=== PATIENT | female | born 1955 | race Caucasian/White ===

== ENCOUNTER 2024-06-05 13:21 | Inpatient (IN) | payer OTHER, MEDICARE ==
[2024-06-05 14:21] LABS: Absolute Basophils 0.1 K/uL (0-0.5); Absolute Eosinophils 0.2 K/uL (0-0.5); Absolute Lymphocytes (CBC) 2.2 K/uL (0.7-4.9); Absolute Monocytes 0.7 K/uL (0.1-1.3); Absolute Neutrophil 3.2 K/uL (1.8-8.0); Basophils % 0.8 % (0-1.3); Eosinophils % 2.9 % (0-4.4); Hematocrit 38.8 % (36.0-45.0); Hemoglobin 13.9 g/dL (12.0-15.0); Lymphocytes % 34.7 % (15.3-44.8); MCH 35.4 pg (27.0-35.0); MCHC 35.9 g/dL (32.0-36.0); MCV 98.8 fL (80-100); MPV 7.2 fL (7.6-11.3); Monocytes % 11.7 % (3.3-12.3); Neutrophils % 49.9 % (41.7-73.7); Nucleated Red Blood Cells % 0.1 % (0-0); Platelets 209 thou/uL (152-406); RBC Red Blood Cell Count 3.92 M/uL (3.86-4.86); Red Cell Distribution Width 13.7 % (12.1-15.2)
[2024-06-05] MEDS ORDERED: ASPIRIN 81 MG CHEWABLE TABLET ONE (14:29)
[2024-06-05 14:39] LABS: Anion Gap 8.6 mEq/L (5.0-15.0); Potassium 3.6 mEq/L (3.5-5.1); Troponin High Sensitivity 6.1 pg/mL (<58.9)
--- NOTE | 2024-06-05 14:49 | ER ---
Nurse's Notes [facility] Name: Loree Interiano Age: 68 yrs Sex: Female : 1955 Arrival Date: 06/05/2024 Time: 13:21 Bed 6 Private MD: Diagnosis: Chest pain, unspecified;Unstable angina Presentation: 06/05 13:42 Chief complaint: Patient states: Pt c/o sudden onset of non-reproducible, non-radiating tl4 right side chest pressure, SOB, diaphoresis, and dizziness while walking around a store at approx 1245 today. Pt states sxs started after eating. Pt is scheduled for an angiogram on Saturday to r/o cardiac blockages. Pt states this pain is similar to previous cardiac pain. Coronavirus screen: At this time, the client does not indicate any symptoms associated with coronavirus-19. Ebola Screen: No symptoms or risks identified at this time. Initial Sepsis Screen: Does the patient meet any 2 criteria? No. Patient's initial sepsis screen is negative. Does the patient have a suspected source of infection? No. Patient's initial sepsis screen is negative. Risk Assessment: Do you want to hurt yourself or someone else? Patient reports no desire to harm self or others. Onset of symptoms was June 05, 2024 at 12:45. 13:42 Method Of Arrival: Wheelchair tl4 13:42 Acuity: MARSHA 2 tl4 Triage Assessment: 13:45 General: Appears in no apparent distress. Behavior is calm, cooperative. Pain: tl4 Complains of pain in chest. EENT: No signs and/or symptoms were reported regarding the EENT system. Neuro: Level of Consciousness is awake, alert, obeys commands, Oriented to person, place, time, situation, Moves all extremities. Full function Gait is steady, Speech is normal, Facial symmetry appears normal. Neuro: Reports dizziness. Cardiovascular: Reports chest pain, diaphoresis, shortness of breath, Capillary refill < 3 seconds Patient's skin is warm and dry. Respiratory: Reports shortness of breath Airway is patent Respiratory effort is even, unlabored, Respiratory pattern is regular, symmetrical. GI: No signs and/or symptoms were reported involving the gastrointestinal system. : No signs and/or symptoms were reported regarding the genitourinary system. Derm: No signs and/or symptoms reported regarding the dermatologic system. Musculoskeletal: No signs and/or symptoms reported regarding the musculoskeletal system. Historical: - Allergies: 13:45 No Known Allergies; tl4 - Immunization history:: Adult Immunizations unknown. - Infectious Disease History:: Denies. - Social history:: Smoking status: Patient reports the use of cigarette tobacco products, 4 cigarettes/day. Screenin:46 [facility] ED Fall Risk Assessment (Adult) History of falling in the last 3 months, iw including since admission No falls in past 3 months (0 pts) Confusion or Disorientation No (0 pts) Intoxicated or Sedated No (0 pts) Impaired Gait No (0 pts) Mobility Assist Device Used No (0 pt) Altered Elimination No (0 pt) Score/Fall Risk Level 0 - 2 = Low Risk Oriented to surroundings, Maintained a safe environment. Abuse screen: Denies threats or abuse. Denies injuries from another. Nutritional screening: No deficits noted. Nutritional screening: No deficits noted. Tuberculosis screening: No symptoms or risk factors identified. Assessment: 14:46 General: Appears in no apparent distress. Behavior is calm, cooperative. Pain: iw Complains of pain in chest Pain does not radiate. Pain currently is 0 out of 10 on a pain scale. at worst was 10 out of 10 on a pain scale. Pain began 4 hours ago. Is continuous. Neuro: Level of Consciousness is awake, alert, obeys commands, Oriented to person, place, time, situation, Moves all extremities. Full function. Cardiovascular: Reports chest pain, Patient's skin is warm and dry. Respiratory: Respiratory effort is even, unlabored, Respiratory pattern is regular, symmetrical. GI: Abdomen is non-distended. Derm: Skin is intact, is healthy with good turgor. Musculoskeletal: Range of motion: intact in all extremities. Vital Signs: 13:42 BP 163 / 90; Pulse 77; Resp 15; Temp 98.2(O); Pulse Ox 96% on R/A; Weight 85.28 kg; tl4 Height 5 ft. 3 in. ; Pain 8/10; 13:42 Body Mass Index 33.30 (85.28 kg, 160.02 cm) tl4 13:42 Pain Scale: Adult tl4 ED Course: 13:24 Patient arrived in ED. mr 13:31 Rogelio Babcock, RADHA is Primary Nurse. bp 13:38 Margarette Rosario PA-C is PHCP. sb4 13:38 Shin Multani MD is Attending Physician. sb4 13:41 EKG done, by ED staff, reviewed by Shin Multani MD. Patient maintains SpO2 saturation tl4 greater than 95% on room air. 13:42 Patient has correct armband on for positive identification. Placed in gown. Bed in low tl4 position. Call light in reach. Side rails up X 1. Adult w/ patient. Provided Education on: ed process, call llanes. Client placed on continuous cardiac and pulse oximetry monitoring. NIBP monitoring applied. center human resources manager on. Door closed. Noise minimized. Moved to private room. 13:45 Triage completed. tl4 13:47 Arm band placed on right wrist. tl4 14:11 XRAY Chest (1 view) In Process Unspecified. EDMS 14:16 Initial lab(s) drawn, by me, sent to lab. Inserted saline lock: 22 gauge in right em1 forearm, using aseptic technique. Blood collected. Flushed with 10 mL NS Missed attempt(s): 20 gauge in right forearm. Bleeding controlled, band aid applied, catheter tip intact. 14:45 Ptt, Activated Sent. iw 14:45 BNP Sent. iw 14:45 PT-INR Sent. iw 14:47 Primary Nurse role handed off by Rogelio Babcock, RADHA iw 14:47 Helen Villalobos, RN is Primary Nurse. iw 14:48 Pj Ocaiso MD is Hospitalizing Provider. sb4 Administered Medications: 14:45 Drug: Aspirin PO Chewable Tablet 324 mg PO once; 81 mg tablets x 4 Route: PO; iw Medication: 14:47 VIS not applicable for this client. iw Outcome: 14:48 Decision to Hospitalize by Provider. sb4 17:27 Patient left the ED. oh1 Signatures: Dispatcher [employer] EDMT Shabana Segura, Reg Reg mr Helen Villalobos, RN RN iw Ayan Manzano em1 Rogelio Babcock, Margarette Meza RN, PA-C PA-C sb4 LogNorbert beckwith RN RN tl4 Mariaa Holloway oh1
--- NOTE | 2024-06-05 14:49 | EDPHYS ---
Physician Documentation [facility] Name: Loree Interiano Age: 68 yrs Sex: Female : 1955 Arrival Date: 06/05/2024 Time: : Bed 6 Private MD: ED Physician Shin Multani HPI: 06/05 13:44 This 68 yrs old Female presents to ER via Unassigned with complaints of Chest Pain. sb4 13:44 The patient or guardian reports chest pain that is located primarily in the substernal sb4 area. Onset: just prior to arrival. The pain does not radiate. Associated signs and symptoms: Pertinent positives: diaphoresis, dizziness, nausea. Duration: The patient or guardian reports multiple episodes. The patient has experienced similar episodes in the past, a few times. chest pain on and off for a few weeks now, had abnormal stress test last week, scheduled for cath on Saturday, started experiencing chest pain today and came into ED. Historical: - Allergies: 13:45 No Known Allergies; tl4 - Immunization history:: Adult Immunizations unknown. - Infectious Disease History:: Denies. - Social history:: Smoking status: Patient reports the use of cigarette tobacco products, 4 cigarettes/day. ROS: 13:44 Constitutional: Negative for fever, chills, and weight loss, sb4 13:44 Cardiovascular: Positive for chest pain, 13:44 All other systems are negative, Exam: 13:44 Constitutional: This is a well developed, well nourished patient who is awake, alert, sb4 and in no acute distress. Head/Face: Normocephalic, atraumatic. Eyes: Extra-ocular motions intact. Periorbital areas with no swelling, redness, or edema. ENT: Mucous membranes moist. Cardiovascular: Regular rate and rhythm with a normal S1 and S2. Respiratory: Lungs have equal breath sounds bilaterally, clear to auscultation and percussion. No rales, rhonchi or wheezes noted. No increased work of breathing, no retractions or nasal flaring. Abdomen/GI: Soft, non-tender, no distension. Skin: Warm, dry with normal turgor. Normal color with no rashes, no lesions, and no evidence of cellulitis. MS/ Extremity: Pulses equal, no cyanosis. Neurovascular intact. Full, normal range of motion. Vital Signs: 13:42 BP 163 / 90; Pulse 77; Resp 15; Temp 98.2(O); Pulse Ox 96% on R/A; Weight 85.28 kg; tl4 Height 5 ft. 3 in. ; Pain 8/10; 13:42 Body Mass Index 33.30 (85.28 kg, 160.02 cm) tl4 13:42 Pain Scale: Adult tl4 MDM: 13:39 Patient medically screened. sb4 13:57 Data reviewed: vital signs, nurses notes, lab test result(s), EKG, radiologic studies, sb4 and as a result, I will admit patient. Consideration of Admission/Observation Patient was admitted/placed on observation. 14:44 The patient was given aspirin in the Emergency Department. sb4 14:48 Counseling: I had a detailed discussion with the patient and/or guardian regarding the sb4 historical points, exam findings, and any diagnostic results supporting the discharge/admit diagnosis, the presence of at least one elevated blood pressure reading (>120/80) during this emergency department visit, lab results, radiology results, the need for further work-up and treatment in the hospital. 14:51 Scoring Tools HEART Score: History: ECG: Age: Risk Factors: > or = 3 Risk factors for sb4 atherosclerotic disease (2), Troponin: Total Score = 4. 06/05 13:33 Order name: Basic Metabolic Panel; Complete Time: 14:39 ec2 06/05 13:33 Order name: CBC with Diff; Complete Time: 14:29 ec2 06/05 13:33 Order name: Troponin HS; Complete Time: 14:39 ec2 06/05 13:44 Order name: PT-INR; Complete Time: 15:28 sb4 06/05 13:44 Order name: Ptt, Activated; Complete Time: 15:28 sb4 06/05 13:44 Order name: BNP; Complete Time: 15:15 sb4 06/05 13:33 Order name: XRAY Chest (1 view); Complete Time: 15:34 ec2 06/05 13:33 Order name: Cardiac monitoring; Complete Time: 14:33 ec2 06/05 13:33 Order name: EKG - Nurse/Tech; Complete Time: 13:35 ec2 06/05 13:33 Order name: IV Saline Lock; Complete Time: 14:16 ec2 06/05 13:33 Order name: Labs collected and sent; Complete Time: 14:16 ec2 06/05 13:33 Order name: O2 Per Protocol; Complete Time: 13:36 ec2 06/05 13:33 Order name: O2 Sat Monitoring; Complete Time: 13:36 ec2 EC:51 Rate is 78 beats/min. Rhythm is regular, Normal Sinus Rhythm. CT interval is normal at sb4 178 msec. QRS interval is normal at 86 msec. QT interval is normal at 412 msec. No Q waves. T waves are Normal. No ST changes noted. Clinical impression: No evidence of ischemia. Interpreted by me. Reviewed by me. Administered Medications: 14:45 Drug: Aspirin PO Chewable Tablet 324 mg PO once; 81 mg tablets x 4 Route: PO; iw Disposition Summary: 06/05/24 14:48 Hospitalization Ordered Notes: Hospitalization Status: Inpatient Admission sb4 Provider: Pj Ocasio sb4 Location: Telemetry/[facility] (Inpatient) sb4 Condition: Fair sb4 Problem: new sb4 Symptoms: are unchanged sb4 Bed/Room Type: Standard sb4 Room Assignment: 211(06/05/24 16:12) ja1 Diagnosis - Chest pain, unspecified sb4 - Unstable angina sb4 Forms: - Medication Reconciliation Form sb4 - SBAR form sb4 - Leadership Thank You Letter sb4 Addendum: 06/07/2024 10:30 I was immediately available for consultation during this patient's visit. I did not e c2 personally see the patient or discuss the patient with the STEPHON. . Signatures: Dispatcher [employer] Helen Bradford RN RN Sohail Luevano RN RN ja1 Margarette Rosario PA-C PA-C sb4 Shin Multani MD MD ec2 Norbert Roman RN RN tl4 Corrections: (The following items were deleted from the chart) 06/05 13:34 13:34 Chest Single View+RAD.RAD.BRZ ordered. ANDIPR ANDIPR 16:12 14:48 sb4 ja1
[2024-06-05 15:26] LABS: PT Prothrombin Time 10.9 SECONDS (9.4-12.5); PTT, Activated Partial Thromb 30.9 SECONDS (24.3-36.9); Protime INR 0.97
--- NOTE | 2024-06-05 15:32 | RAD REPORT ---
EXAM DESCRIPTION: Jennifer Single View06/05/2024 2:10 pm CLINICAL HISTORY: CHEST PAIN COMPARISON: No comparisons TECHNIQUE: Portable AP view of the chest. FINDINGS: The lungs are clear. No pneumothorax or effusion. The cardiomediastinal contours are unre markable. IMPRESSION: No acute cardiopulmonary process.
--- NOTE | 2024-06-05 16:19 | P.HP ---
Certification for Inpatient Patient admitted to: Inpatient With expected LOS: >2 Midnights Patient will require the following post-hospital care: None Practitioner: I am a practitioner with admitting privileges, knowledge of patient current condition, hospital course, and medical plan of care. Services: Services provided to patient in accordance with Admission requirements found in Title 42 Section 412.3 of the Code of Federal Regulations Patient History Date of Service: 06/05/24 Reason for admission: Unstable angina History of Present Illness: 68-year-old female with history of GERD, hypertension, hyperlipidemia presents emergency department chief complaint of chest pain. She reports that she had an abnormal stress test on 05/27 and was pending outpatient catheterization when she developed severe chest pain while at [employer]. She was evaluated here in the emergency department initial high-sensitivity, within normal limits, EKG without STEMI criteria. Given abnormal stress test and ongoing chest pain we will plan to admit patient to the hospital for further management. - Past Medical/Surgical History -: hypertension -: Hyperlipidemia -: GERD -: Cholecystectomy -: Oophorectomy -: Cosmetic surgeries Psychosocial/ Personal History: Retired, lives at home with her - Family History Father -: Heart disease - Social History Smoking Status: Current every day smoker Alcohol use: Yes CD- Drugs: No Caffeine use: Yes Place of Residence: Home Review of Systems 10-point ROS is otherwise unremarkable Cardiovascular: Chest Pain Physical Examination - Physical Exam General: Alert, In no apparent distress, Oriented x3 HEENT: Atraumatic, PERRLA, Mucous membr. moist/pink, EOMI Neck: Supple, 2+ carotid pulse no bruit, No LAD Respiratory: Clear to auscultation bilaterally, Normal air movement Cardiovascular: Regular rate/rhythm, Normal S1 S2 Gastrointestinal: Normal bowel sounds Musculoskeletal: No tenderness Integumentary: No rashes Neurological: Normal gait, Normal speech, Normal strength at 5/5 x4 extr, Normal tone, Normal affect Lymphatics: No axilla or inguinal lymphadenopathy - Studies Laboratory Data (last 24 hrs) 06/05/24 06/05/24 06/05/24 14:40 14:10 14:10 WBC 6.40 Hgb 13.9 Hct 38.8 Plt Count 209 PT 10.9 INR 0.97 APTT 30.9 Sodium 140 Potassium 3.6 BUN 17 Creatinine 0.77 Glucose 119 H Assessment and Plan - Plan Assessment: Unstable angina Hypertension hyperlipidemia GERD Plan: Unstable angina abnormal stress test 05/27 Began having severe chest pain today-improved Trend troponins and monitor on telemetry As needed morphine/nitroglycerin Cardiology consultation in place Likely will need inpatient cath Hypertension hyperlipidemia GERD Continue home medications DVT PPX: Therapeutic Lovenox Code status:full Discharge Plan: Home Plan to discharge in: 72 Hours - Advance Directives Does patient have a Living Will: No Does patient have a Durable POA for Healthcare: No - Code Status/Comfort Care Code Status Assessed: Yes (Full code) Critical Care: No Time Spent Managing Pts Care (In Minutes): 70
[2024-06-05 17:25] VITALS: BMI 33.2
[2024-06-05] MEDS ORDERED: ONDANSETRON 4 MG/2 ML VIAL IV PRN (17:53)
[2024-06-05] MEDS ORDERED: NITROGLYCERIN 0.4 MG/TAB SL PRN (17:53)
[2024-06-05] MEDS: METOPROLOL TAR 25 MG TAB PO SCH (19:12)
[2024-06-05] MEDS: ATORVASTATIN 40 MG TAB PO SCH (20:03)
[2024-06-05] MEDS: ENOXAPARIN 100 MG/ML SYR SQ SCH (20:04)
[2024-06-06 04:39] LABS: Absolute Eosinophils 0.2 K/uL (0-0.5); Absolute Lymphocytes (CBC) 2.1 K/uL (0.7-4.9); Absolute Monocytes 0.7 K/uL (0.1-1.3); Absolute Neutrophil 2.3 K/uL (1.8-8.0); Basophils % 0.7 % (0-1.3); Hematocrit 38.4 % (36.0-45.0); Hemoglobin 13.1 g/dL (12.0-15.0); Lymphocytes % 39.5 % (15.3-44.8); MCH 33.4 pg (27.0-35.0); MCV 98.2 fL (80-100); MPV 7.3 fL (7.6-11.3); Neutrophils % 42.8 % (41.7-73.7); Nucleated Red Blood Cells % 0.2 % (0-0); Platelets 192 thou/uL (152-406); RBC Red Blood Cell Count 3.91 M/uL (3.86-4.86); Red Cell Distribution Width 13.3 % (12.1-15.2)
[2024-06-06 04:57] LABS: Anion Gap 6.5 mEq/L (5.0-15.0); Potassium 3.5 mEq/L (3.5-5.1)
[2024-06-06] MEDS: PANTOPRAZOLE 40MG TABLET PO SCH (05:54)
[2024-06-06 11:02] LABS: Sqamous Epithelial None Seen /HPF (None Seen); Urine Bacteria None Seen /HPF (<20); Urine Bilirubin NEGATIVE (Negative); Urine Blood Negative (Negative); Urine Clarity Clear (Clear); Urine Color Colorless (Yellow); Urine Culture Reflex Order NOT NEEDED; Urine Glucose NEGATIVE (Negative); Urine Ketones NEGATIVE (Negative); Urine Microscopic Reflex YN ORDER UMIC; Urine Nitrite NEGATIVE (Negative); Urine Protein NEGATIVE (Negative); Urine RBC <5 /HPF (None Seen); Urine Urobilinogen Normal (Normal); Urine WBC <5 /HPF (<5); Urine pH 6.5 (5.0-7.0)
--- NOTE | 2024-06-06 11:19 | P.PN ---
Date of Service: 06/06/24 Subjective: Had another episode of chest discomfort this morning No other acute events overnight ROS: 10 point ROS as noted above, otherwise negative Physical exam GEN: Alert, oriented, NAD HEENT: Normal conjunctiva, sclera anicteric CV: Regular rate and rhythm, no edema Pulm: Nonlabored respirations on room air ABD: Soft, nontender, nondistended MSK: No joint tenderness Integumentary: No rashes Neuro: Normal speech, normal affect Vitals reviewed Assessment: Unstable angina Hypertension hyperlipidemia GERD Plan: Unstable angina abnormal stress test 05/27 Began having severe chest pain 06/05-improved Still with ongoing intermittent pain Trops negative x 3, continue to monitor on telemetry As needed morphine/nitroglycerin Cardiology consultation in place Likely will need inpatient cath on Saturday Hypertension hyperlipidemia GERD Continue home medications DVT PPX: Therapeutic Lovenox Code status:full Discharge Plan: Home Plan to discharge in: 72 Hours Time Spent Managing Pts Care (In Minutes): 35
[2024-06-06] MEDS: LIDOCAINE 4% PATCH TOP SCH (12:24)
[2024-06-06] MEDS: SUCRALFATE 1GM/10ML UCUP FT PRN (12:24)
[2024-06-06] MEDS: ACETAMINOPHEN 325 MG TABLET PO PRN (12:24)
[2024-06-06] MEDS: AMLODIPINE 5 MG TAB PO SCH (16:48)
[2024-06-07] MEDS: MORPHINE 2 MG/ML SYR IV PRN (00:19)
[2024-06-07 05:48] LABS: Absolute Eosinophils 0.2 K/uL (0-0.5); Absolute Monocytes 0.6 K/uL (0.1-1.3); Absolute Neutrophil 2.3 K/uL (1.8-8.0); Basophils % 0.7 % (0-1.3); Eosinophils % 3.7 % (0-4.4); Hematocrit 39.4 % (36.0-45.0); Hemoglobin 13.2 g/dL (12.0-15.0); Lymphocytes % 39.2 % (15.3-44.8); MCH 33.5 pg (27.0-35.0); MCHC 33.6 g/dL (32.0-36.0); MCV 99.8 fL (80-100); MPV 7.8 fL (7.6-11.3); Monocytes % 11.8 % (3.3-12.3); Neutrophils % 44.6 % (41.7-73.7); Platelets 170 thou/uL (152-406); RBC Red Blood Cell Count 3.94 M/uL (3.86-4.86); Red Cell Distribution Width 13.6 % (12.1-15.2)
[2024-06-07 05:58] LABS: Anion Gap 6.3 mEq/L (5.0-15.0); Potassium 3.3 mEq/L (3.5-5.1)
[2024-06-07] MEDS ORDERED: LIDOCAINE 4% PATCH TOP SCH (09:00)
--- NOTE | 2024-06-07 10:15 | P.PN ---
Date of Service: 06/07/24 Subjective: Still having intermittent chest pressure No acute events overnight ROS: 10 point ROS as noted above, otherwise negative Physical exam GEN: Alert, oriented, NAD HEENT: Normal conjunctiva, sclera anicteric CV: Regular rate and rhythm, no edema Pulm: Nonlabored respirations on room air ABD: Soft, nontender, nondistended MSK: No joint tenderness Integumentary: No rashes Neuro: Normal speech, normal affect Vitals reviewed Assessment: Unstable angina Hypertension hyperlipidemia GERD Plan: Unstable angina abnormal stress test 05/27 Began having severe chest pain 06/05-improved Still with ongoing intermittent pain Trops negative x 3, continue to monitor on telemetry As needed morphine/nitroglycerin Cardiology consultation in place Likely will need inpatient cath on Saturday NPO after midnight Hypertension hyperlipidemia GERD Continue home medications DVT PPX: Therapeutic Lovenox Code status:full Discharge Plan: Home Plan to discharge in: 72 Hours Time Spent Managing Pts Care (In Minutes): 35
[2024-06-07] MEDS: ASPIRIN 81 MG CHEWABLE TABLET PO ONE (17:11)
--- NOTE | 2024-06-07 17:41 | CON ---
Date of Consultation: 06/07/2024 Reason For Consultation: Chest pain. History Of Present Illness: 68-year-old female, history of hypertension, dyslipidemia, acid reflux. She has been having chest pain on and off, left and right side, radiates to the shoulder, and increa ses with activity. She had a stress test in the office and it was positive and she was planned to shah ve coronary angiogram and scheduled for it for tomorrow morning. At the present time, she has no devika st pain, but with activities, she gets chest pain plus dizzy spells and lasts for about 15-20 minutes , and resolves. Past Medical History: Hypertension, dyslipidemia, acid reflux. Past Surgical History: Cholecystectomy, oophorectomy. Medications: Refer to reconciliation sheet for detailed list. Allergies: NO KNOWN DRUG ALLERGIES. Family History: No premature coronary artery disease or cancer. Social History: She is an ex-smoker. Does not drink or use any drugs. Review of Systems: All systems were reviewed and they were negative except as mentioned in the HPI. Physical Examination: Vital Signs: Reviewed. Head and Neck: Pupils are equal, reactive to light. Intact eye movements. No JVD. No cervical lym phadenopathy. Neck is supple. Thyroid is not enlarged. Lungs: Clear to auscultation bilaterally. No rhonchi, wheezing, or crackles. No accessory muscle u se. Heart: Regular rate and rhythm. No extra sounds. Abdomen: Soft, nontender. Bowel sounds positive. No organomegaly. No masses or hernia. No rigidi ty or rebound. Extremities: No edema, clubbing, or cyanosis. Intact pulses. Skin: No rash. No nodule. Neurologic: Alert, awake, oriented x3. No acute focal deficits appreciated. Investigations: BUN is 10, creatinine 0.66, potassium is 3.3. Troponins are negative and hemoglobin is 15.2. Assessment And Recommendations: 1.Unstable angina with abnormal stress test. Keep her NPO past midnight. Plan for a coronary angio gram early in the morning. Continue baby aspirin and to hold the Lovenox after tonight's dose and pr eparation for coronary angiogram tomorrow. 2.Dyslipidemia. Continue Lipitor 40 mg q.h.s. 3.Hypertension. Blood pressure is acceptable. Continue current therapy. SR/MODL Voice ID: [id number] Report ID: [id number]
[2024-06-08] MEDS: ASPIRIN 81 MG CHEWABLE TABLET ONE (05:36)
[2024-06-08] MEDS: ASPIRIN 81 MG CHEWABLE TABLET PO SCH (05:43)
[2024-06-08 06:29] LABS: Absolute Eosinophils 0.2 K/uL (0-0.5); Absolute Lymphocytes (CBC) 1.9 K/uL (0.7-4.9); Absolute Monocytes 0.7 K/uL (0.1-1.3); Absolute Neutrophil 3.1 K/uL (1.8-8.0); Basophils % 0.6 % (0-1.3); Eosinophils % 2.7 % (0-4.4); Hemoglobin 13.7 g/dL (12.0-15.0); Lymphocytes % 32.8 % (15.3-44.8); MCH 33.9 pg (27.0-35.0); MCHC 34.1 g/dL (32.0-36.0); MCV 99.4 fL (80-100); MPV 7.7 fL (7.6-11.3); Monocytes % 11.3 % (3.3-12.3); Neutrophils % 52.6 % (41.7-73.7); Nucleated Red Blood Cells % 0.2 % (0-0); Platelets 201 thou/uL (152-406); RBC Red Blood Cell Count 4.03 M/uL (3.86-4.86); Red Cell Distribution Width 13.3 % (12.1-15.2)
[2024-06-08 06:40] LABS: Anion Gap 4.6 mEq/L (5.0-15.0); Potassium 3.6 mEq/L (3.5-5.1)
[2024-06-08] MEDS ORDERED: LIDOCAINE 1% 20 ML MDV ONE (07:25)
[2024-06-08] MEDS ORDERED: NITROGLYCERIN/D5W 50 MG/250 ML BTL IV ONE (07:25)
[2024-06-08] MEDS ORDERED: ATROPINE SULF 1 MG/10 ML SYR IV ONE (07:25)
[2024-06-08] MEDS ORDERED: MIDAZOLAM HCL 2 MG/2 ML INJ ONE ×2 (07:25→09:01)
[2024-06-08] MEDS ORDERED: HEPA 1000U/500MLS 2,000 UNIT/1,000 ML BAG IV ONE (07:25)
[2024-06-08] MEDS ORDERED: HEPARIN 5000 UNIT/ML 1 ML VIAL ONE (07:26)
[2024-06-08] MEDS ORDERED: FENTANYL CITR 100 MCG/2 ML ONE ×2 (07:26→09:12)
[2024-06-08] MEDS ORDERED: HEPARIN 10,000 UNIT/10 ML VIAL IV ONE (07:26)
[2024-06-08] MEDS ORDERED: TICAGRELOR 90 MG TABLET PO ONE (07:26)
[2024-06-08] MEDS ORDERED: NA CHLORIDE 0.9% 500 ML ONE (07:26)
[2024-06-08] MEDS ORDERED: CLOPIDOGREL 75 MG TABLET ONE (07:27)
[2024-06-08] MEDS ORDERED: ASPIRIN 325 MG TAB ONE (07:27)
[2024-06-08] MEDS: HYDRALAZINE HCL 20 MG/ML VIAL ONE (12:04)
[2024-06-08] MEDS: FENTANYL CITR 100 MCG/2 ML ONE (12:04)
[2024-06-08] MEDS: ONDANSETRON 4 MG/2 ML VIAL ONE (12:13)
[2024-06-08] MEDS: HYDRALAZINE HCL 20 MG/ML VIAL IV ONE (12:30)
[2024-06-08] MEDS: FENTANYL CITR 100 MCG/2 ML IV ONE (12:30)
--- NOTE | 2024-06-08 12:31 | P.PN ---
Subjective Date of Service: 06/08/24 Chief Complaint: Unstable angina Review of Systems 10-point ROS is otherwise unremarkable Physical Examination - Vital Signs Temperature: 97.9 F Blood Pressure: 177/83 Pulse: 61 Respirations: 15 Pulse Ox (%): 98 - Physical Exam General: Alert, In no apparent distress HEENT: Atraumatic, PERRLA, EOMI Neck: Supple, JVD not distended Respiratory: Clear to auscultation bilaterally, Normal air movement Cardiovascular: Regular rate/rhythm, Normal S1 S2 Gastrointestinal: Normal bowel sounds, No tenderness Musculoskeletal: No tenderness Integumentary: No rashes Neurological: Normal speech, Normal tone, Normal affect Lymphatics: No axilla or inguinal lymphadenopathy - Studies Medications List Reviewed: Yes Assessment And Plan - Current Problems (Diagnosis) (1) Unstable angina Current Visit: Yes Status: Acute Plan: Patient is s/p coronary angiogram today with PCI LAD and PTCA Diagonal continue ASA 81 mg daily for life. continue Brilinta 90 mg po BID for 12 months continue lipitor 40 mg daily (2) HTN (hypertension) Current Visit: Yes Status: Acute Plan: continue metoprolol 25 mg po BID add Losartan 25 mg daily (3) HLD (hyperlipidemia) Current Visit: Yes Status: Acute Plan: continue lipitor 40 mg daily
[2024-06-08 13:32] VITALS: O2SAT 98
--- NOTE | 2024-06-08 14:48 | P.PN ---
Date of Service: 06/08/24 Subjective: Underwent coronary angiogram today Reports significant chest pain after coronary angiogram which she was told by cardiology was expected ROS: 10 point ROS as noted above, otherwise negative Physical exam GEN: Alert, oriented, NAD HEENT: Normal conjunctiva, sclera anicteric CV: Regular rate and rhythm, no edema Pulm: Nonlabored respirations on room air ABD: Soft, nontender, nondistended MSK: No joint tenderness Integumentary: No rashes Neuro: Normal speech, normal affect Vitals reviewed Assessment: Unstable angina Hypertension hyperlipidemia GERD Plan: Unstable angina abnormal stress test 05/27 Began having severe chest pain 06/05-improved Underwent coronary angiogram 06/08 with PCI of the LAD and PTCA of the diagonal Continue aspirin, Brilinta, statin, metoprolol-prescription sent to [facility] in [place] Came to [place] with significant chest pain, this was likely due to the PTCA of the diagonal, expected per cardiology Plan for discharge in the morning if patient proved Hypertension hyperlipidemia GERD Continue home medications DVT PPX: Lovenox Code status:full Discharge Plan: Home Plan to discharge in: 24 hours Time Spent Managing Pts Care (In Minutes): 35
[2024-06-08 15:59] VITALS: BP 140/71; TEMP 97.3
--- NOTE | 2024-06-08 17:00 | P.DS ---
Admission Date: 06/05/24 Discharge Date: 06/08/24 Disposition: ROUTINE DISCHARGE Discharge Condition: GOOD Reason for Admission: Unstable angina Consultations: Dr. Salmeron cardiology Procedures: [facility] with pci of lad 06/08 Brief History of Present Illness: 68-year-old female with history of GERD, hypertension, hyperlipidemia presents emergency department chief complaint of chest pain. She reports that she had an abnormal stress test on 05/27 and was pending outpatient catheterization when she developed severe chest pain while at [employer]. She was evaluated here in the emergency department initial high-sensitivity, within normal limits, EKG without STEMI criteria. Given abnormal stress test and ongoing chest pain we will plan to admit patient to the hospital for further management. Hospital Course: Assessment: Unstable angina/CAD with PCI of LAD Hypertension hyperlipidemia GERD Patient was admitted to the hospital for chest pain/unstable angina. Prior to admission to the hospital she had an abnormal stress test. She was kept in the hospital to undergo coronary angiogram which took place on 06/08. She had PCI of the LAD and PTCA of the diagonal, will need to take aspirin 81 mg for life, Brilinta 90 mg by mouth twice daily for at least 12 months, atorvastatin 40 mg daily. For her blood pressure we will continue the metoprolol 25 mg by mouth twice daily and add losartan 25 mg daily. We also discussed her history of GERD and ongoing symptoms which may have been related to her unstable angina versus reflux. Discussed appropriate usage of ibuprofen and risk for worsening GERD/ulcerations, recommend follow-up with GI. Please follow-up to primary care doctor within 1-2 weeks Please follow-up with cardiology outpatient Continue taking your metoprolol 25 mg mouth twice daily-refill sent Stop taking rosuvastatin, prescription sent for atorvastatin 40 mg to take at bedtime Continue taking baby aspirin 81 mg daily Start taking Brilinta 90 mg mouth twice daily until otherwise instructed by cardiology-is very important that you take this medication along with a baby aspirin to prevent issues with your stent Start taking losartan 25 mg daily for your blood pressure Vital Signs/Physical Exam: Temp Pulse Resp BP Pulse Ox 97.3 F 69 17 140/71 99 06/08/24 15:58 06/08/24 15:58 06/08/24 15:58 06/08/24 15:58 06/08/24 15:58 General: Alert, In no apparent distress, Oriented x3 HEENT: Atraumatic, PERRLA Neck: Supple, JVD not distended Respiratory: Clear to auscultation bilaterally, Normal air movement Cardiovascular: Regular rate/rhythm, Normal S1 S2 Gastrointestinal: Normal bowel sounds, No tenderness Musculoskeletal: No tenderness Integumentary: No rashes Neurological: Normal speech, Normal tone Laboratory Data at Discharge: WBC 5.90 thou/uL (4.3-10.9) 06/08/24 05:10 Hgb 13.7 g/dL (12.0-15.0) 06/08/24 05:10 Hct 40.0 % (36.0-45.0) 06/08/24 05:10 Plt Count 201 thou/uL (152-406) 06/08/24 05:10 PT 10.9 SECONDS (9.4-12.5) 06/05/24 14:40 INR 0.97 06/05/24 14:40 APTT 30.9 SECONDS (24.3-36.9) 06/05/24 14:40 Sodium 139 mEq/L (136-145) 06/08/24 05:10 Potassium 3.6 mEq/L (3.5-5.1) 06/08/24 05:10 BUN 11 mg/dL (7-18) 06/08/24 05:10 Creatinine 0.68 mg/dL (0.55-1.02) 06/08/24 05:10 Glucose 107 mg/dL (74-106) H 06/08/24 05:10 Home Medications: Aspirin [Aspirin EC 81 MG] 81 mg PO DAILY 06/05/24 Omeprazole 20 mg PO DAILY 06/05/24 Atorvastatin Calcium [Lipitor] 40 mg PO BEDTIME #30 tab 06/08/24 Losartan Potassium 25 mg PO DAILY #30 tab 06/08/24 Metoprolol Tartrate [Lopressor*] 25 mg PO BID #60 tab 06/08/24 Ticagrelor [Brilinta*] 90 mg PO BID #60 tab 06/08/24 New Medications: Ticagrelor [Brilinta*] 90 mg PO BID #60 tab Atorvastatin Calcium [Lipitor] 40 mg PO BEDTIME #30 tab Metoprolol Tartrate [Lopressor*] 25 mg PO BID #60 tab Losartan Potassium 25 mg PO DAILY #30 tab Physician Discharge Instructions: Patient was admitted to the hospital for chest pain/unstable angina. Prior to admission to the hospital she had an abnormal stress test. She was kept in the hospital to undergo coronary angiogram which took place on 06/08. She had PCI of the LAD and PTCA of the diagonal, will need to take aspirin 81 mg for life, Brilinta 90 mg by mouth twice daily for at least 12 months, atorvastatin 40 mg daily. For her blood pressure we will continue the metoprolol 25 mg by mouth twice daily and add losartan 25 mg daily. We also discussed her history of GERD and ongoing symptoms which may have been related to her unstable angina versus reflux. Discussed appropriate usage of ibuprofen and risk for worsening GERD/ulcerations, recommend follow-up with GI. Please follow-up to primary care doctor within 1-2 weeks Please follow-up with cardiology outpatient Continue taking your metoprolol 25 mg mouth twice daily-refill sent Stop taking rosuvastatin, prescription sent for atorvastatin 40 mg to take at bedtime Continue taking baby aspirin 81 mg daily Start taking Brilinta 90 mg mouth twice daily until otherwise instructed by cardiology-is very important that you take this medication along with a baby aspirin to prevent issues with your stent Start taking losartan 25 mg daily for your blood pressure Diet: AHA Activity: Ad elizabeth Followup: Apollo Salmeron MD [ACTIVE - CAN ADMIT] - 1-2 Weeks (Call for appointment.) Deysi Lazcano FNP [Primary Care Provider] - 1-2 Weeks (Call for a ppointment.) Time spent managing pt's care (in minutes): 33
--- NOTE | 2024-06-08 17:08 | EKG ---
Test Date: 2024-06-05 Test Time: 13:36:27 Event Staff Member: TL MEASUREMENT RESULTS: Intervals: Rate: 78 IL: 178 QRSD: 86 QT: 412 QTc: 469 [place]: P: 24 IL: 178 QRS: -16 T: 22 INTERPRETIVE STATEMENTS: Normal sinus rhythm Low voltage QRS Borderline ECG No previous ECG available for comparison Electronically Signed On 06-08-24 16:59:38 CDT by Jeronimo Almanza
[2024-06-08] MEDS: ATORVASTATIN 40 MG TAB PO ONE (17:13)
[2024-06-08] MEDS: TICAGRELOR 90 MG TABLET PO ONE (17:13)
[2024-06-08] MEDS ORDERED: TICAGRELOR 90 MG TABLET PO SCH (21:00)
--- NOTE | 2024-06-09 00:13 | OP ---
Date of Procedure: 06/08/2024 Surgeon: Apollo Salmeron Procedures Performed: 1.Left heart catheterization. 2.Selective coronary angiogram. 3.Percutaneous transluminal coronary angioplasty of diagonal. 4.Percutaneous coronary intervention of the left anterior descending with Synergy 3.0 x 28 mm drug-e luting stent. Complications: None. Estimated Blood Loss: Less than 50 cc. Sedation Time: 30 minutes with 4 of Versed and 150 of fentanyl. Access: Right radial, closed by TR band. Description Of Procedure: After risks, benefits, and alternatives were explained to the patient, the patient agreed to proceed with the procedure and signed informed consent. The patient was brought b ack to the minilab operator, prepped and draped in sterile fashion. Time-out was performed. Sedation was ad ministered. Next, obtained right radial access, 6-Tunisian sheath was introduced without any difficult y, and was followed by advancement of the Rillito 4 catheter over a J-wire to the LV cavity. LVEDP was obtained. Pullback did not show any gradient. Same catheter was used for selective angiogram of th e left and right coronary systems. Later, that catheter was exchanged for an EBU 3.0 mm guide. Hepa rin was administered. ACT was therapeutic. First Runthrough wire into the diagonal, second Runthrou gh wire into the LAD. We pre-dilated the diagonal lesions with a 2.25 mm balloon. Next, we tried to deliver a Synergy 2.25 mm drug-eluting stent, but were unable to do that due to tortuosity. GuideLi ner was used for support, still unable to deliver the stent, so we decided to leave it with the PTCA and then we pre-dilated the LAD lesions with a 3.0 mm balloon, that was followed by placement of a Sy nergy 3.0 x 28 mm drug-eluting stent across the lesion that was postdilated by NC 3.5 mm balloon. Re peat angiogram shows jailed diagonal ostium, so we crossed into the diagonal through the LAD stent an d PTCA was done with a 2.25 mm balloon. Final angiogram shows PALMIRA-3 flow. At the end of procedure, wires were removed. Catheter was removed. TR sheath was removed and TR band was applied. Hemostas is achieved and the patient was moved back to recovery in stable condition. Findings: 1.Left main: Normal. 2.LAD: Mid calcified 70% disease, status post PCI. 3.Diagonal 2 with mid calcified 80% disease, status post PTCA. 4.Left circumflex: Mild luminal irregularities. 5.RCA: Mild luminal irregularities. Assessment And Plan: 1.Significant mid left anterior descending disease, status post percutaneous coronary intervention w ith Synergy 3.0 x 28 mm drug-eluting stent. 2.Significant diagonal 2 disease, status post percutaneous transluminal coronary angioplasty with a 2.25 mm NC balloon. Plan will be: 1.Aspirin 81 mg daily for life. 2.Brilinta 180 mg p.o. x1 was given in the minilab operator, continue Brilinta 90 mg p.o. b.i.d. for 12 ousmane hs. 3.Continue aggressive medical treatment for CAD. PRISCILLA/URSULA Voice ID: [id number] Report ID: [id number]
[2024-06-09] MEDS ORDERED: ENOXAPARIN 40 MG/0.4 ML SQ SCH (09:00)
[2024-06-09] MEDS ORDERED: LOSARTAN POTASSIUM 50 MG TABLET PO SCH (09:00)
== END 2024-06-08 17:35 | disposition home or self-care (01) | DRG 322 ==
LOC: ER 13:21 → ERHOLD 15:06 → 2ND 17:00
PROVIDERS: ADMIT Hospitalist; ATTEND Hospitalist
PROC: 027034Z Dilation of Coronary Artery, One Artery with Drug-eluting Intraluminal Device, Percutaneous Approach (ICD-10-PCS; principal; 2024-06-08)
PROC: 4A023N7 Measurement of Cardiac Sampling and Pressure, Left Heart, Percutaneous Approach (ICD-10-PCS; 2024-06-08)
PROC: B2111ZZ Fluoroscopy of Multiple Coronary Arteries using Low Osmolar Contrast (ICD-10-PCS; 2024-06-08)
DX: I25.110 Atherosclerotic heart disease of native coronary artery with unstable angina pectoris (principal); I10 Essential (primary) hypertension; E78.5 Hyperlipidemia, unspecified; K21.9 Gastro-esophageal reflux disease without esophagitis; F17.210 Nicotine dependence, cigarettes, uncomplicated; Z90.49 Acquired absence of other specified parts of digestive tract; Z79.82 Long term (current) use of aspirin; Z79.899 Other long term (current) drug therapy
CPT/HCPCS: 36415; 71045; 76937; 80048; 81001; 83880; 84484; 85025; 85347; 85610; 85730; 92921; 93005; 93458; 99152; 99153; 99284; C1725; C1893; C9600; J0360; J0461; J1644; J1650; J2001; J2250; J2270; J2405; J3010; J7040; Q9967